=== PATIENT | male | born 1960 | race Caucasian/White ===

== ENCOUNTER 2017-07-21 17:01 | Emergency (ER) | payer SELFPAY ==
[~2017-07-21] VITALS: Ht 182.8 cm; Wt 94.3 kg
[~2017-07-21 17:01] MED LIST: BACTRIM DS 8001 TA1 PO; CEPHALEXIN500 M1 PO; HYDROCHLOROTHIA25 M1 PO; HYDROCODONE BIT1 T11 PO
[2017-07-21] MEDS ORDERED: ULTRAM50 MG PO (19:58)
[2017-07-21] MEDS ORDERED: CIPRO500 MG PO (19:58)
[2017-07-21 20:22] LABS: BILIRUBIN NEGATIVE (NEGATIVE); BLOOD NEGATIVE (NEGATIVE); CLARITY CLEAR (CLEAR); COLOR YELLOW (YELLOW); GLUCOSE NEGATIVE (NEGATIVE); KETONE TRACE (NEGATIVE); LEUKO ESTERASE 1+ (NEGATIVE); NITRITE NEGATIVE (NEGATIVE); PH 5.5 (5.0-9.0); SPECIFIC GRAVITY 1.025 (1.005-1.030); UROBILINOGEN 0.2 E.U./dl (0.2-1.0)
[2017-07-21 20:28] LABS: BACTERIA 1+; WBC 16-20 wbc/hpf (0-5)
== END 2017-07-21 20:42 | disposition home or self-care (01) ==
LOC: ED 17:01
PROVIDERS: Student in an Organized Health Care Education/Training Program
DX: N45.3 Epididymo-orchitis (principal)